=== PATIENT | female | born 1960 | race Caucasian/White ===

== ENCOUNTER 2025-10-05 06:47 | Day surgery (SDC) | payer MEDICARE, OTHER ==
[~2025-10-05] VITALS: Ht 160 cm; Wt 84.5 kg
[2025-10-05] MEDS ORDERED: SODIUM CHLORIDE 0.9% 1,000 ML ONE (07:56)
[2025-10-05] MEDS ORDERED: FentaNYL CITRATE PF 100 MCG/2 ML VIAL ONE (08:04)
[2025-10-05] MEDS ORDERED: MIDAZOLAM HCL 2 MG/2 ML VIAL ONE (08:05)
[2025-10-05 08:41] LABS: GLUCOMETER DEV NAME(LOC) SDS.; GLUCOSE,POINT OF CARE 119 MG/DL (70-110)
[2025-10-05] MEDS: SODIUM CHLORIDE 0.9% 1,000 ML IV ONE (08:41)
[2025-10-05 10:20] VITALS: PULSE 61; RESP 18; O2SAT 98
[2025-10-05] MEDS ORDERED: ALBUTEROL SULFATE 2.5 MG/0.5 ML NEB SOLUTION NEB ONE (12:00)
[2025-10-05] MEDS ORDERED: LIDOCAINE 4% 50 ML SOLUTION ONE (12:00)
[2025-10-05] MEDS ORDERED: LIDOCAINE 2% 11 ML JELLY ONE (12:00)
[2025-10-05] MEDS ORDERED: BENZOCAINE 20% 50 MCG/SPRAY 57 GM ONE (12:00)
== END 2025-10-05 13:45 | disposition home or self-care (01) ==
LOC: SURGERY 06:47
PROVIDERS: ATTEND Internal Medicine Critical Care Medicine
DX: J38.4 Edema of larynx (principal); B37.0 Candidal stomatitis; R05.3 Chronic cough; R73.09 Other abnormal glucose; I51.7 Cardiomegaly
CPT/HCPCS: 31623; 82962; 87206; 87101; 87220; 87070; 31624; 71045; 87015; J3010; J2250; J2919; J7030; 88108; J7613; Z7610